=== PATIENT | female | born 1975 | race Two or more races ===

== ENCOUNTER 2020-01-29 18:42 | Emergency (ER) | payer OTHER ==
[~2020-01-29] VITALS: Ht 162.6 cm; Wt 59.0 kg
--- NOTE | 2020-01-29 18:42 | NUR ---
PT BRENDAN ALS TO ER BED 04. RN EVALUATING AT BEDSIDE. Addendum: 01/29/20 at 1858 by [facility] PT BRENDAN BLS TO ER BED 04. RN EVALUATING AT BEDSIDE.
[2020-01-29 18:52] VITALS: BP 158/100
--- NOTE | 2020-01-29 19:00 | NUR ---
44 Y/O FEMALE C/O HEADACHE/ WEAKNESS/ DIZZINESS/ HTN X3 WEEKS. PT IS ON METOPROLOL AND LOSARTAN FOR HTN, METOPROLOL 50 MG WAS TAKEN THIS MORNING. PT STATES HEADACHE IS 10/10. DENIES ANY COUGH/SOB. RESP EVEN AND UNLABORED. AAOX4. PT IS BLIND. DENIES N/V/D. PT ABLE TO AMBULATE TO BATHROOM. PMH: HTN, SARCOMA
--- NOTE | 2020-01-29 19:16 | NUR ---
Pt report given to DOMINGO SENIOR. Transfer of care at this time.
--- NOTE | 2020-01-29 19:16 | NUR ---
received report from anais
[2020-01-29 20:07] VITALS: BP 141/84
--- NOTE | 2020-01-29 20:14 | NUR ---
Dr. Antunez examining patient.
== END 2020-01-29 20:14 | disposition home or self-care (01) ==
LOC: MED 18:42
DX: I10 Essential (primary) hypertension (principal); H54.62 Unqualified visual loss, left eye, normal vision right eye; Z98.890 Other specified postprocedural states
CPT/HCPCS: 99283

== ENCOUNTER 2020-07-19 11:21 | Emergency (ER) | payer OTHER, SELFPAY ==
[~2020-07-19] VITALS: Ht 154.9 cm; Wt 68.0 kg
[2020-07-19 11:40] VITALS: BP 144/97
[2020-07-19] MEDS ORDERED: KETOROLAC 30 MG/ML VIAL IM ONE (11:40)
--- NOTE | 2020-07-19 11:47 | NUR ---
Pt in tent to be assessed by CM Moore
--- NOTE | 2020-07-19 11:47 | NUR ---
45 y/f biba from home for SOB. Pt reports she was seen at [place] last weds and dx with covid pneumonia and isntructed to come back if sx worsen. Pt reports cough, sob, body ache, diarrhea, loss of appetite, and nausea. pmh-CA, HTN, completely blind nkda rx- metoprolol
[2020-07-19 12:19] LABS: BASOPHILS % (AUTO) 0.1 % (0.0-2.0); HEMATOCRIT 30.3 % (36-48); HEMOGLOBIN 9.9 g/dL (12.0-16.0); LYMPHOCYTES # (AUTO) 0.5 K/uL (2.5-16.5); LYMPHOCYTES % (AUTO) 12.1 % (20.5-51.1); MEAN CORPUSCULAR HEMOGLOBIN 27 pg (27-31); MEAN CORPUSCULAR HGB CONC 33 g/dL (33-37); MEAN CORPUSCULAR VOLUME 83.8 fL (80-94); MONOCYTES # (AUTO) 0.5 K/uL (0.8-1.0); MONOCYTES % (AUTO) 12.1 % (1.7-9.3); NEUTROPHILS # (AUTO) 3.1 K/uL (1.8-7.7); NEUTROPHILS % (AUTO) 75.7 % (42.2-75.2); PLATELET COUNT (AUTO) 445 K/uL (140-450); RED BLOOD CELL COUNT(AUTO) 3.62 MIL/uL (4.20-5.40); RED CELL DISTRIBUTION WIDTH 17.2 % (11.6-13.7); WHITE BLOOD COUNT (AUTO) 4.1 K/uL (4.8-10.8)
[2020-07-19 12:54] LABS: ALBUMIN 3.2 g/dL (3.4-5.0); ANION GAP 14.7 (8-16); CARBON DIOXIDE 24.5 mmol/L (21-32); CREATININE 0.7 mg/dL (0.6-1.3); POTASSIUM 4.2 mmol/L (3.5-5.1); TOTAL BILIRUBIN 0.2 mg/dL (0.0-1.0)
[2020-07-19 14:31] VITALS: BP 144/97
--- NOTE | 2020-07-19 14:31 | NUR ---
Patient discharged with v/s stable. Written and verbal after care instructions given and explained. Patient alert, oriented and verbalized understanding of instructions. Ambulatory with steady gait. All questions addressed prior to discharge. ID band removed. Patient advised to follow up with PMD. Rx of Compazine, Prednisone, Azithromycin given. Patient educated on indication of medication including possible reaction and side effects. Opportunity to ask questions provided and answered.
== END 2020-07-19 14:31 | disposition home or self-care (01) ==
LOC: MED 11:21
DX: U07.1 COVID-19 (principal); C41.4 Malignant neoplasm of pelvic bones, sacrum and coccyx; H54.7 Unspecified visual loss; I10 Essential (primary) hypertension
CPT/HCPCS: 36415; 71045; 80053; 84484; 85025; 93005; 96372; 99285; J1885

== ENCOUNTER 2021-08-17 22:39 | Emergency (ER) | payer OTHER ==
[~2021-08-17] VITALS: Ht 154.9 cm; Wt 68.0 kg
[2021-08-17 22:44] VITALS: BP 169/110
--- NOTE | 2021-08-17 22:44 | NUR ---
PT OFFLOADED TO TENT2
--- NOTE | 2021-08-17 22:55 | NUR ---
COVID SWAB COLLECTED AND TAKEN TO LAB.
[2021-08-18] MEDS ORDERED: IBUPROFEN 600 MG TAB PO ONE (00:25)
[2021-08-18] MEDS ORDERED: DEXA6TAB8 PO (00:54)
--- NOTE | 2021-08-18 01:00 | NUR ---
TOSHIAA FROM HOME C/O SOB x3 DAYS. ACCOMPANIED BY COUGH, SORE THROAT. SEEN AT HOSPITAL x2 DAYS AGO WITH SIMILAR COMPLAINT, GIVEN AUGMENTIN FOR PNA BUT PER PT "ITS NOT WORKING". MEDHX- LEGALLY BLIND, HTN, SAROMA, NKA
[2021-08-18 01:01] VITALS: BP 169/110
--- NOTE | 2021-08-18 01:01 | NUR ---
Patient discharged with v/s stable. Written and verbal after care instructions given and explained. Patient alert, oriented and verbalized understanding of instructions. Ambulatory with steady gait. All questions addressed prior to discharge. ID band removed. Patient advised to follow up with PMD. Rx of DEXAMETHASONE given. Patient educated on indication of medication including possible reaction and side effects. Opportunity to ask questions provided and answered.
== END 2021-08-18 01:01 | disposition home or self-care (01) ==
LOC: MED 22:39
DX: U07.1 COVID-19 (principal); I10 Essential (primary) hypertension
CPT/HCPCS: 99283

== ENCOUNTER 2021-12-21 21:19 | Emergency (ER) | payer OTHER ==
[~2021-12-21] VITALS: Ht 154.9 cm; Wt 63.2 kg
[~2021-12-21 21:19] MED LIST: DEXA6TAB8 PO
--- NOTE | 2021-12-21 21:44 | NUR ---
Kortney day in [facility] - 12/21/21 at 2145 by [facility] PT TAKEN BED 11
[2021-12-21 21:54] VITALS: BP 133/89
--- NOTE | 2021-12-21 22:11 | NUR ---
Patient ambulated to bed 4 with her family.
--- NOTE | 2021-12-21 23:02 | NUR ---
46 Y/O FEMALE BIB FAMILY FROM HOME, C/O GENERAL WEAKNESS X FRIDAY. REPORTS INCREASED SWEATING AND HOT FLASHES, DECREASED APPETITE, DIZZINESS, SOB, ANXIETY AND 7/10 ABD PAIN. DENIES N/V/D. DENIES FEVER. PT IS BLIND. +TASTE. PT STATES SHE HAS BEEN TAKING HER AUGMENTUM AT HOME FOR CHILLS, AND OTC TYLENOL/IBUPROFEN FOR PAIN. PT IS SEATED IN BED WITH HOB RAISED AND BED N LOWEST SETTING, AND RAIL UP X1. PT HAS UNLABORED BREATHING AND SPEAKING IN FULL SENTENCES. PT IS AMBULATORY WITH ASSISTANCE. PT IS COMPLETELY BLIND. PT IS RECIEVING TREATMENT AT [facility] FOR CANCER HX:HTN, SARCOMA CA IN PELVIS, STENTS IN KIDNEYS AND BLADDER. NKA MED: METOPROLOL, AUGMENTUM
--- NOTE | 2021-12-21 23:22 | NUR ---
ER MD AT BEDSIDE EXAMING PT
[2021-12-21] MEDS ORDERED: ACETAMINOPHEN 325 MG TAB PO ONE (23:35)
[2021-12-21] MEDS ORDERED: KETOROLAC 30 MG/ML VIAL IM ONE (23:35)
--- NOTE | 2021-12-21 23:42 | NUR ---
XRAY AT BEDSIDE
--- NOTE | 2021-12-21 23:50 | NUR ---
MOTORCYCLE MECHANIC AT BEDSIDE. COVID/GOLDIE SWABBED AND HANDED TO MOTORCYCLE MECHANIC
[2021-12-21 23:58] LABS: BASOPHILS % (AUTO) 0.1 % (0.0-2.0); HEMATOCRIT 37.6 % (36-48); HEMOGLOBIN 12.7 g/dL (12.0-16.0); LYMPHOCYTES # (AUTO) 0.7 K/uL (2.5-16.5); LYMPHOCYTES % (AUTO) 10.5 % (20.5-51.1); MEAN CORPUSCULAR HEMOGLOBIN 30 pg (27-31); MEAN CORPUSCULAR HGB CONC 34 g/dL (33-37); MEAN CORPUSCULAR VOLUME 88.7 fL (80-94); MONOCYTES # (AUTO) 0.1 K/uL (0.8-1.0); MONOCYTES % (AUTO) 1.6 % (1.7-9.3); NEUTROPHILS # (AUTO) 5.6 K/uL (1.8-7.7); NEUTROPHILS % (AUTO) 87.8 % (42.2-75.2); PLATELET COUNT (AUTO) 306 K/uL (140-450); RED BLOOD CELL COUNT(AUTO) 4.24 MIL/uL (4.20-5.40); RED CELL DISTRIBUTION WIDTH 15.5 % (11.6-13.7); WHITE BLOOD COUNT (AUTO) 6.4 K/uL (4.8-10.8)
[2021-12-22 00:20] LABS: APPEARANCE,URINE CLEAR (CLEAR); BILIRUBIN,URINE NEGATIVE (NEGATIVE); BLOOD, URINE 2+ (NEGATIVE); COLOR,URINE YELLOW (YELLOW); LEUKOCYTE ESTERASE ,URINE 2+ (NEGATIVE); NITRITE, URINE POSITIVE (NEGATIVE); UGLUCOSE NEGATIVE (NEGATIVE)
[2021-12-22 00:20] LABS: ANION GAP 15.1 (8-16); CREATININE 0.8 mg/dL (0.6-1.3); POTASSIUM 4.1 mmol/L (3.5-5.1); TOTAL BILIRUBIN 0.2 mg/dL (0.0-1.0)
[2021-12-22 00:38] LABS: RBC,URINE 0-5 /HPF (0-5); WBC,URINE 20-60 /HPF (0-5)
--- NOTE | 2021-12-22 01:07 | NUR ---
DR ROSE AT BEDSIDE DISCUSSING PT RESULTS
[2021-12-22] MEDS ORDERED: cephALEXin 500 MG CAP PO ONE (01:10)
[2021-12-22] MEDS ORDERED: CEPH-588 PO (01:55)
[2021-12-22 02:05] VITALS: BP 152/80
--- NOTE | 2021-12-22 02:07 | NUR ---
Patient discharged with v/s stable. Written and verbal after care instructions given and explained. Patient alert, oriented and verbalized understanding of instructions. Ambulatory with steady gait. All questions addressed prior to discharge. ID band removed. Patient advised to follow up with PMD. Rx of KEFLEX given. Patient educated on indication of medication including possible reaction and side effects. Opportunity to ask questions provided and answered. a/ox4, vss, unlabored breathing, ambulatory, and calm demeanor.
--- NOTE | 2021-12-22 02:08 | NUR ---
PT'S DAUGHTER SIGNED D/C PAPERWORK ON BEHALF OF PT. PT GAVE VERBAL CONSENT DUE TO PT BEING COMPLETELY BLIND
--- NOTE | 2021-12-24 16:32 | NUR ---
urine came back positive for ECOLI and MRDO. md reyna notified
== END 2021-12-22 02:05 | disposition home or self-care (01) ==
LOC: MED 21:19
DX: N39.0 Urinary tract infection, site not specified (principal); R51.9 Headache, unspecified; I10 Essential (primary) hypertension; Z20.822 Contact with and (suspected) exposure to COVID-19; Z85.53 Personal history of malignant neoplasm of renal pelvis
CPT/HCPCS: 36415; 71045; 80053; 81001; 81025; 85025; 87086; 87426; 96372; 99284; J1885; Q0092

== ENCOUNTER 2022-01-27 18:12 | Emergency (ER) | payer OTHER ==
[~2022-01-27] VITALS: Ht 154.9 cm; Wt 62.6 kg
[~2022-01-27 18:12] MED LIST changes: +CEPH-588 PO
[2022-01-27 19:01] VITALS: BP 134/98
[2022-01-27] MEDS ORDERED: KETOROLAC 60 MG/2 ML VIAL IM ONE (19:15)
--- NOTE | 2022-01-27 19:27 | NUR ---
COVID/GOLDIE, FLU AND URINE COLLECTED AND WALKED TO LAB
--- NOTE | 2022-01-27 20:09 | NUR ---
46 Y/O FEMALE BIB FAMILY FROM HOME, C/O HEADACHE, BODY ACHE, SORE THROAT , R FACE SWELLING X 1 WEEK. PT STATS SHE WILL BE STARTING CHEMO IN ONE WEEK AND IS CONCERNED ABOUT AN INFECTION. A/OX4, GCS-15; UNLABORED BREATHING, SPEAKING IN FULL SENTENCES; AMBULATORY WITH A GUIDE, PT IS COMPLETELY BLIND IN BOTH EYES. PMH: HYSTERECTOMY, PELVIC CANCER, BLIND BOTH EYES
--- NOTE | 2022-01-27 20:34 | NUR ---
ER AT BEDSIDE
[2022-01-27] MEDS ORDERED: ACET-8386 PO (20:44)
[2022-01-27] MEDS ORDERED: CIPR500T4 PO (20:44)
[2022-01-27] MEDS ORDERED: IBUP-2213 PO (20:44)
[2022-01-27 20:49] VITALS: BP 136/97
--- NOTE | 2022-01-27 20:50 | NUR ---
Patient discharged with v/s stable. Written and verbal after care instructions given and explained. Patient alert, oriented and verbalized understanding of instructions. Ambulatory with steady gait. All questions addressed prior to discharge. ID band removed. Patient advised to follow up with PMD. Rx of CIPRO, IBUPROFEN, AND NORCO 5-325 given. Patient educated on indication of medication including possible reaction and side effects. Opportunity to ask questions provided and answered. VSS, A/OX4, UNLABORED BREATHING, AMBULATORY, AND CALM DEMEANOR.
== END 2022-01-27 20:50 | disposition home or self-care (01) ==
LOC: MED 18:12
DX: R51.9 Headache, unspecified (principal); Z20.822 Contact with and (suspected) exposure to COVID-19; N39.0 Urinary tract infection, site not specified; I10 Essential (primary) hypertension; Z79.899 Other long term (current) drug therapy; Z98.890 Other specified postprocedural states; Z90.710 Acquired absence of both cervix and uterus; Z85.53 Personal history of malignant neoplasm of renal pelvis
CPT/HCPCS: 81002; 87426; 87804; 96372; 99283; J1885

== ENCOUNTER 2022-02-06 03:40 | Emergency (ER) | payer OTHER ==
[~2022-02-06] VITALS: Ht 154.9 cm; Wt 62.6 kg
[~2022-02-06 03:40] MED LIST changes: +ACET-8386 PO; +CIPR500T4 PO; +IBUP-2213 PO
--- NOTE | 2022-02-06 03:41 | NUR ---
Dr. Lynn examining patient.
[2022-02-06 03:47] VITALS: BP 147/102
--- NOTE | 2022-02-06 03:47 | NUR ---
JOSE KUMAR. TAKEN TO BED 1
[2022-02-06 04:06] LABS: BASOPHILS % (AUTO) 0.6 % (0.0-2.0); EOSINOPHILS # (AUTO) 0.1 K/uL (0-0.4); HEMATOCRIT 35.6 % (36-48); LYMPHOCYTES # (AUTO) 2.2 K/uL (2.5-16.5); LYMPHOCYTES % (AUTO) 32.4 % (20.5-51.1); MEAN CORPUSCULAR HEMOGLOBIN 30 pg (27-31); MEAN CORPUSCULAR HGB CONC 34 g/dL (33-37); MEAN CORPUSCULAR VOLUME 89.5 fL (80-94); MONOCYTES # (AUTO) 0.5 K/uL (0.8-1.0); MONOCYTES % (AUTO) 8.2 % (1.7-9.3); NEUTROPHILS # (AUTO) 3.8 K/uL (1.8-7.7); NEUTROPHILS % (AUTO) 56.8 % (42.2-75.2); PLATELET COUNT (AUTO) 275 K/uL (140-450); RED BLOOD CELL COUNT(AUTO) 3.98 MIL/uL (4.20-5.40); RED CELL DISTRIBUTION WIDTH 16.5 % (11.6-13.7); WHITE BLOOD COUNT (AUTO) 6.6 K/uL (4.8-10.8)
[2022-02-06 04:18] LABS: ALBUMIN 3.5 g/dL (3.4-5.0); ANION GAP 8.3 (8-16); CARBON DIOXIDE 29.5 mmol/L (21-32); CREATININE 0.7 mg/dL (0.6-1.3); POTASSIUM 3.8 mmol/L (3.5-5.1); TOTAL BILIRUBIN 0.2 mg/dL (0.0-1.0)
--- NOTE | 2022-02-06 04:19 | NUR ---
46 Y/O FEMALE BIBA FROM HOME FOR DYSURIA AND BURNING WITH URINATION X2 DAYS. PT WAS SEEN RECENTLY AT [facility] FOR UTI AND SENT HOME WITH ABX. PT STATES THE UTI DID NOT RESOLVE AND NOW HAS PAIN IN PELVIS 8/10, BURNING AND PAIN WITH URINATION. NO FEVER, COUGH, CP, OR SOB. PT IS A/OX4, UNLABORED BREATHING, AMBULATORY WITH GUIDE (PT IS COMPLETELY BLIND). PT STATES SHE IS TO START CHEMO FOR PELVIC CA NEXT WEEK. HX: PELVIC CA, HTN NKA
[2022-02-06] MEDS: cephALEXin 500 MG CAP PO ONE (04:29)
[2022-02-06 04:59] LABS: APPEARANCE,URINE CLOUDY (CLEAR); BILIRUBIN,URINE NEGATIVE (NEGATIVE); BLOOD, URINE 3+ (NEGATIVE); COLOR,URINE YELLOW (YELLOW); LEUKOCYTE ESTERASE ,URINE 3+ (NEGATIVE); NITRITE, URINE POSITIVE (NEGATIVE); UGLUCOSE NEGATIVE (NEGATIVE)
[2022-02-06 05:05] LABS: WBC,URINE TOO MANY TO COUNT /HPF (0-5)
[2022-02-06] MEDS ORDERED: cefTRIAXone 1,000 MG VIAL ONE (05:06)
[2022-02-06] MEDS: HYDROcodone/APAP 5/325 MG 1 TAB TAB PO ONE (05:15)
[2022-02-06] MEDS: KETOROLAC 30 MG/ML VIAL IVP ONE (05:16)
--- NOTE | 2022-02-06 05:16 | NUR ---
PT TAKEN TO RADIOLOGY
[2022-02-06] MEDS ORDERED: PHEN-1877 PO (06:08)
[2022-02-06] MEDS ORDERED: CEPH500C16 PO (06:08)
[2022-02-06] MEDS ORDERED: ONDANSETRON 4 MG/2 ML VIAL IVP ONE (06:15)
[2022-02-06] MEDS ORDERED: MORPHINE SULFATE 4 MG/ML SYR IVP ONE (06:15)
--- NOTE | 2022-02-06 06:21 | NUR ---
ER MD AT BEDSIDE DISCUSSING PT RESULTS
[2022-02-06] MEDS ORDERED: HYDR-5080 PO (06:27)
[2022-02-06 06:52] VITALS: BP 127/64
--- NOTE | 2022-02-06 06:52 | NUR ---
Patient discharged with v/s stable. Written and verbal after care instructions given and explained. Patient alert, oriented and verbalized understanding of instructions. Ambulatory with steady gait. All questions addressed prior to discharge. ID band removed. Patient advised to follow up with PMD. Rx of KEFLEX AND PYRIDIUM given. Patient educated on indication of medication including possible reaction and side effects. Opportunity to ask questions provided and answered. vss, a/ox4, unlabored breathing, ambulatory , and calm demeanor.
--- NOTE | 2022-02-08 19:00 | NUR ---
LATE ENTRY. RECEIVED POSITIVE URINE CULTURE. DISCREPANCY LOG SIGNED BY DR LUNA. TREATMENT APPROPRIATE. FORM PLACED IN BINDER.
== END 2022-02-06 06:52 | disposition home or self-care (01) ==
LOC: MED 03:40
DX: N28.89 Other specified disorders of kidney and ureter (principal); N39.0 Urinary tract infection, site not specified; R10.2 Pelvic and perineal pain; I10 Essential (primary) hypertension; Z85.53 Personal history of malignant neoplasm of renal pelvis
CPT/HCPCS: 36415; 74177; 80053; 81001; 85025; 87086; 96365; 96375; 99285; J0696; J1885; Q9967

== ENCOUNTER 2022-05-27 13:53 | Emergency (ER) | payer OTHER ==
[~2022-05-27] VITALS: Ht 12.7 cm; Wt 0.5 kg
[~2022-05-27 13:53] MED LIST changes: +CEPH500C16 PO; +HYDR-5080 PO; +PHEN-1877 PO
[2022-05-27 14:21] VITALS: BP 144/101
--- NOTE | 2022-05-27 14:39 | NUR ---
COVID, FLU SWAB DONE.
--- NOTE | 2022-05-27 15:01 | NUR ---
TO ER BED 7
--- NOTE | 2022-05-27 15:10 | NUR ---
47YO FEMALE PT C/O GENRALIZED WEAKNESS X2 WEEKS. REPORTS FEVER "FELT HOT", COUGH, FATIGUE, DIZZINESS, HEAD AND BODY ACHES. PRESENTS W/ DRY COUGH AND W/O FEVER. MILD RELIEF AFTER TAKING TYLENOL. STATES S/S TO WHEN SHE PREVIOUSLY HAD COVID X2. DENIES CHEST PAIN, N/V/D, CHILLS OR SOB. PT AAOX4, RESPIRATIONS EVEN AND UNLABORED. HOB POSITIONED PER COMFORT, BED AT LOWEST POSITION, BED RAILS UP X2 HX: PELVIC CANCER, HTN , BLIND NKA
[2022-05-27 15:13] LABS: BASOPHILS # (AUTO) 0.1 K/uL (0.00-0.22); BASOPHILS % (AUTO) 0.8 % (0.0-2.0); EOSINOPHILS # (AUTO) 0.2 K/uL (0-0.4); EOSINOPHILS % (AUTO) 3.1 % (0.0-4.0); HEMATOCRIT 33.3 % (36-48); HEMOGLOBIN 11.1 g/dL (12.0-16.0); LYMPHOCYTES # (AUTO) 1.7 K/uL (2.5-16.5); LYMPHOCYTES % (AUTO) 25.2 % (20.5-51.1); MEAN CORPUSCULAR HEMOGLOBIN 31 pg (27-31); MEAN CORPUSCULAR HGB CONC 33 g/dL (33-37); MEAN CORPUSCULAR VOLUME 92.2 fL (80-94); MONOCYTES # (AUTO) 0.7 K/uL (0.8-1.0); NEUTROPHILS # (AUTO) 4.1 K/uL (1.8-7.7); NEUTROPHILS % (AUTO) 60.9 % (42.2-75.2); PLATELET COUNT (AUTO) 284 K/uL (140-450); RED BLOOD CELL COUNT(AUTO) 3.62 MIL/uL (4.20-5.40); RED CELL DISTRIBUTION WIDTH 19.6 % (11.6-13.7); WHITE BLOOD COUNT (AUTO) 6.8 K/uL (4.8-10.8)
--- NOTE | 2022-05-27 15:29 | NUR ---
MD COATES AT BEDSIDE FOR EVALUATION
--- NOTE | 2022-05-27 15:30 | NUR ---
XRAY AT BEDSIDE
[2022-05-27 15:34] LABS: ALBUMIN 3.5 g/dL (3.4-5.0); ANION GAP 15.5 (8-16); CREATININE 0.8 mg/dL (0.6-1.3); POTASSIUM 3.5 mmol/L (3.5-5.1); TOTAL BILIRUBIN 0.2 mg/dL (0.0-1.0)
[2022-05-27 15:35] LABS: PROTHROMBIN TIME 11.4 secs (10.8-13.4)
[2022-05-27 17:48] VITALS: BP 143/80
--- NOTE | 2022-05-27 17:50 | NUR ---
Patient discharged with v/s stable. Written and verbal after care instructions FOR UPPER RESPIRATORY INFECTION given and explained. Patient verbalized understanding. Ambulatory with by DAUGHTER All questions addressed prior to discharge. Advised to follow up with PMD.
--- NOTE | 2022-05-27 17:50 | NUR ---
Note undone in EDM - 05/27/22 at 1758 by PHSEP Patient discharged with v/s stable. Written and verbal after care instructions FOR RADICULAR PAIN, SCIATICA AND ACUTE BACK PAIN given and explained. Patient alert, oriented and verbalized understanding of instructions. Ambulatory with steady gait. All questions addressed prior to discharge. ID band removed. Patient advised to follow up with PMD. Rx of IBUPROFEN, LIDODERM AND PREDNISONE given. Opportunity to ask questions provided and answered.
--- NOTE | 2022-05-27 17:59 | NUR ---
The patient's care was reviewed and supervised by ED Agency Nurse 9, RN, RN.
== END 2022-05-27 17:48 | disposition home or self-care (01) ==
LOC: MED 13:53
DX: B34.9 Viral infection, unspecified (principal); Z20.822 Contact with and (suspected) exposure to COVID-19; R53.1 Weakness; R05.9 Cough, unspecified; M79.10 Myalgia, unspecified site; I10 Essential (primary) hypertension; H54.7 Unspecified visual loss; Z98.890 Other specified postprocedural states; Z85.42 Personal history of malignant neoplasm of other parts of uterus; Z79.899 Other long term (current) drug therapy
CPT/HCPCS: 36415; 71045; 80053; 81002; 81025; 83880; 84484; 85025; 85610; 85730; 87426; 87804; 93005; 99284; Q0092